=== PATIENT | male | born 1950 | race Caucasian/White ===

== ENCOUNTER → 2017-10-22 12:56 | Outpatient (CLI) | payer MEDICARE, SELFPAY ==
--- NOTE | 2017-10-22 13:01 | STE_ITS ---
Reason For Study: CHEST TIGHTNESS Stress Results Protocol: Juve Protocol Maximum Predicted HR: 154 bpm Target HR: 131 bpm% Max imum Predicted HR: 97 % DurationHeart Rate Stage (mm:ss) (bpm) BP BASELINE 88 140/92 STAGE 1 3:00 75 158/90 STAGE 2 3:00 13 7 170/90 STAGE 3 1:00 15 0 / RECOVERY 94 148/90 Stress Duration: 7:00 mm:ss Maximum Stress HR: 150 bpm Baseline Echocardiogram Findings Stress Echo Wall motion Data Resting WMIntermediate WMStress WM Resting Wall Motion Wall Motion Stress No regional wall motion No regional wall motion abnormalities noted. abnormalities noted. Ejection Fraction 45 %. Ejection Fraction 55 %. EKG Data Baseline ECG demonstrates normal sinus rhythm with a rate of 67 beats per minute. The patient exercised according to the regular Juve protocol for a total duration of 7. The maximum heart rate attained was 150 beats per minute. This was 97% of maximum predicted heart rate. The patient exercised into stage 1 of the Juve protocol. During stress, there were no ST or T wave changes noted to suggest ischemia. At peak exercise, upsloping ST changes only were noted, which did not meet the criteria for ischemia. Interpretation Summary Normal resting LV systolic function. Nonstenotic valves. With stress, the LV size decreased and all segments augmented normally. The LVEF increased from 45% to 55%. Negative for ischemia at 97% of MPHR and at 10.1 METS. Good blood pressure response to exercise. Terminated for leg fatigue. Ordering Physician: Candido Luevano Referring Physician: Candido Luevano Performed By: Keely Contreras, RAYSA, RVT
== END ==
PROVIDERS: Family Provider Family Medicine; PCP Family Medicine; Visit Provider Family Medicine
DX: R07.89 Other chest pain (principal)
CPT/HCPCS: 93017; 93350; Q9957; A4216

== ENCOUNTER 2020-10-22 13:38 | Outpatient (RCR) | payer MEDICARE, SELFPAY ==
[2020-10-22] MEDS: COVID-19 VACC, MRNA(PFIZER)/PF 30 MCG/0.3 ML SYRINGE IM (15:54)
[2020-11-12] MEDS: COVID-19 VACC, MRNA(PFIZER)/PF 30 MCG/0.3 ML SYRINGE IM (16:06)
== END 2021-01-21 23:59 ==
LOC: IMMUN 13:38
PROVIDERS: PCP Family Medicine; Referring Provider Family Medicine; Visit Provider Family Medicine
DX: Z23 Encounter for immunization (principal)
CPT/HCPCS: 0001A; 0002A; 91300